=== PATIENT | female | born 1975 | race Caucasian/White ===

== ENCOUNTER → 2016-05-23 | Outpatient (CLI) | payer OTHER ==
--- NOTE | 2016-05-23 13:18 | DIAGNOSTIC IMAGING REPORT ---
THORACIC SPINE 3 VIEWS ROUTINE CLINICAL HISTORY: Mid back pain COMPARISON STUDY: No previous studies for comparison. FINDINGS: There is an S-shaped scoliosis. The paraspinal line is not displaced. No fractures or destructive lesions are visualized. IMPRESSION: Scoliosis. No fractures identified. No destructive lesions are visualized. Electronically signed by: Didier Magana M.D. 05/23/2016 1:16 PM Dictated Date/Time: 05/23/2016 1:16 PM
--- NOTE | 2016-05-23 13:47 | DIAGNOSTIC IMAGING REPORT ---
RIGHT RIBS UNILATERAL WITH PA CHEST CLINICAL HISTORY: Right rib pain status post trauma COMPARISON STUDY: No previous studies for comparison. FINDINGS: The erect chest reveals no pneumothorax. There is no focal pulmonary consolidation. No right-sided rib fractures are visualized. IMPRESSION: No evidence of pneumothorax. No right-sided rib fractures are visualized. Electronically signed by: Didier Magana M.D. 05/23/2016 1:45 PM Dictated Date/Time: 05/23/2016 1:44 PM
== END | disposition home or self-care (01) ==
LOC: C.RAD1850 12:30
PROVIDERS: ATTEND Nurse Practitioner Family
DX: R07.81 Pleurodynia (principal); M54.9 Dorsalgia, unspecified; M41.9 Scoliosis, unspecified